=== PATIENT | male | born 1980 | race Caucasian/White ===

== ENCOUNTER 2021-10-02 15:58 | Outpatient (CLI) | payer SELFPAY ==
--- NOTE | 2021-10-02 17:24 | XRAY Report ---
PROCEDURE: Knee 3 View BILAT INDICATIONS: BILATERAL KNEE PAIN TECHNIQUE: 3 views of the bilateral knee(s) were acquired. COMPARISON: None. FINDINGS: Bones: No fractures or dislocations. No suspicious bony lesions. Mild narrowing of the medial femo ral tibial joints and bilateral tricompartmental periarticular osteophyte formation. Soft tissues: No joint effusion. No suspicious soft tissue calcifications. IMPRESSION: Mild bilateral knee joint degeneration. Reviewed by: ISAC Spear on 10/02/2021 5:22 PM PDT Approved by: Zuhair Silvestre MD on 10/02/2021 5:22 PM PDT Station ID: [id number]
== END 2021-10-02 15:59 | disposition home or self-care (01) ==
LOC: DI 15:58
PROVIDERS: ATTEND Family Medicine
DX: M17.0 Bilateral primary osteoarthritis of knee (principal)